=== PATIENT | female | born 1995 | race Asian ===

== ENCOUNTER 2019-04-27 20:39 | Emergency (ER) | payer OTHER ==
[~2019-04-27] VITALS: Ht 157.5 cm; Wt 72.6 kg
[2019-04-27 20:45] VITALS: BP_SYST 129
--- NOTE | 2019-04-27 20:45 | NUR ---
Patient triaged and placed in waiting room. VSS and patient appears in no acute distress at this time. Accompanied by FAM MEMBER, awaiting available bed, and MD notified of need for MSE.
--- NOTE | 2019-04-27 23:16 | NUR ---
Per admitting pt left and going to [facility].
== END 2019-04-27 23:18 | disposition left against medical advice (07) ==
LOC: SED 20:39
DX: R06.02 Shortness of breath (principal); R07.89 Other chest pain; Z53.21 Procedure and treatment not carried out due to patient leaving prior to being seen by health care provider
CPT/HCPCS: 93005